=== PATIENT | male | born 1965 | race Caucasian/White ===

== ENCOUNTER 2023-05-02 21:46 | Emergency (ER) | payer MEDICAID ==
[~2023-05-02] VITALS: Ht 188 cm; Wt 99.8 kg
[2023-05-02 23:13] LABS: CALCIUM 8.8 mg/dL (8.5-10.1); CREATININE 0.8 mg/dL (0.6-1.3); POTASSIUM 3.9 mmol/L (3.5-5.1)
[2023-05-02 23:19] LABS: ALBUMIN 3.3 g/dL (3.4-5.0); BILIRUBIN,TOTAL 0.4 mg/dL (0.2-1.0); TOTAL PROTEIN, SERUM 7.1 g/dL (6.4-8.2)
[2023-05-02 23:20] LABS: BASOPHILS # (AUTO) 0.4 K/UL (0.0-0.2); C-REACTIVE PROTEIN 2.24 mg/dL (0.00-0.30); DIFFERENTIAL COMMENT 0; EOSINOPHILS # (AUTO) 0.3 K/uL (0.0-0.7); EOSINOPHILS % (AUTO) 3.5 % (0.0-7.0); HEMATOCRIT 41.2 % (36.7-47.1); HEMOGLOBIN 14.4 g/dL (12.5-16.3); LYMPHOCYTES % (AUTO) 10.6 % (20.5-51.5); MEAN CORPUSCULAR HEMOGLOBIN 32.4 uug (23.8-33.4); MEAN CORPUSCULAR HGB CONC 35 g/dL (32.5-36.3); MEAN CORPUSCULAR VOLUME 92.4 fL (73.0-96.2); MONOCYTES # (AUTO) 0.9 K/uL (0.1-1.30); MONOCYTES % (AUTO) 9.7 % (0.0-11.0); NEUTROPHILS # (AUTO) 6.8 K/uL (1.8-8.9); NEUTROPHILS % (AUTO) 72.2 % (38.5-71.5); PLATELET COUNT (AUTO) 173 K/uL (152-348); RED BLOOD CELL COUNT(AUTO) 4.46 MIL/uL (4.06-5.63); RED CELL DISTRIBUTION WIDTH 13.3 % (12.1-16.2); WHITE BLOOD COUNT (AUTO) 9.4 K/uL (3.6-10.2)
[2023-05-02 23:25] LABS: ERYTHROCYTE SEDIMENTATION RATE 25 MM/HR (0-15)
[2023-05-02] MEDS ORDERED: DOXY100C5 PO (23:36)
[2023-05-02] MEDS ORDERED: DOXYCYCLINE HYCLATE 100 MG TABLET ONE (23:48)
[2023-05-02] MEDS: DOXYCYCLINE HYCLATE 100 MG TABLET PO ONE (23:50)
[2023-05-03 00:16] VITALS: BP 147/85; TEMP 98.5; O2SAT 95
== END 2023-05-03 00:10 | disposition home or self-care (01) ==
LOC: ER 21:47
DX: L03.032 Cellulitis of left toe (principal); L02.612 Cutaneous abscess of left foot; F17.200 Nicotine dependence, unspecified, uncomplicated; Z79.899 Other long term (current) drug therapy
CPT/HCPCS: 36415; 73660; 83735; 85025; 85651; 86140; A4606; A4663

== ENCOUNTER 2023-06-26 03:14 | Inpatient (IN) | payer OTHER ==
[~2023-06-26] VITALS: Ht 188 cm; Wt 99.8 kg
[~2023-06-26 03:14] MED LIST: DOXY100C5 PO
[2023-06-26] MEDS ORDERED: ONDANSETRON 4 MG/2 ML VIAL ONE (03:53)
[2023-06-26] MEDS ORDERED: NITROGLYCERIN 0.4MG/HR (=16 CM2) PATCH TD ONE (03:53)
[2023-06-26] MEDS ORDERED: HYDROMORPHONE 1 MG/1 ML DISP.SYRIN ONE ×3 (03:54→05:04)
[2023-06-26] MEDS ORDERED: NITROGLYCERIN OINT 1 GM PACKET TP ONE (04:02)
[2023-06-26] MEDS: HYDROMORPHONE 1 MG/1 ML DISP.SYRIN IV ONE ×3 (04:06→05:27)
[2023-06-26] MEDS: IV NORMAL SALINE 1000 ML BAG IV ONE (04:06)
[2023-06-26] MEDS: ONDANSETRON 4 MG/2 ML VIAL IV ONE (04:07)
[2023-06-26] MEDS: NITROGLYCERIN OINT 1 GM PACKET TP ONE (04:07)
[2023-06-26 04:09] LABS: CALCIUM 8.7 mg/dL (8.5-10.1); CARBON DIOXIDE 31 mmol/L (21-32); CHLORIDE 101 mmol/L (98-107); CREATININE 0.8 mg/dL (0.6-1.3); GLUCOSE 109 mg/dL (74-106); POTASSIUM 4.7 mmol/L (3.5-5.1); SODIUM SERUM 137 mmol/L (136-145); UREA NITROGEN, BLOOD 16 mg/dL (7-18)
[2023-06-26 04:31] LABS: ALANINE AMINOTRANSFERASE 19 U/L (16-63); ALKALINE PHOSPHATASE 87 U/L (50-136); ASPARTATE AMINOTRANSFERASE 18 U/L (15-37); BILIRUBIN,DIRECT < 0.1 mg/dL (0.0-0.2); BILIRUBIN,TOTAL 0.5 mg/dL (0.2-1.0); NT-PRO BNP 15 pg/mL (0-125)
[2023-06-26] MEDS ORDERED: levoFLOXacin 750MG/D5W 150 ML IV ONE (04:50)
[2023-06-26] MEDS: levoFLOXacin 750 MG/D5W 150 ML PIGGYBACK IV ONE (04:57)
[2023-06-26 05:06] LABS: BASOPHILS # (AUTO) 0.1 K/UL (0.0-0.2); BASOPHILS % (AUTO) 0.6 % (0.0-2.0); EOSINOPHILS # (AUTO) 0.3 K/uL (0.0-0.7); EOSINOPHILS % (AUTO) 2.7 % (0.0-7.0); HEMATOCRIT 40.9 % (36.7-47.1); HEMOGLOBIN 14.1 g/dL (12.5-16.3); LYMPHOCYTES # (AUTO) 1.7 K/uL (0.8-4.8); MEAN CORPUSCULAR HEMOGLOBIN 31.1 uug (23.8-33.4); MEAN CORPUSCULAR HGB CONC 35 g/dL (32.5-36.3); MEAN CORPUSCULAR VOLUME 90.2 fL (73.0-96.2); MONOCYTES # (AUTO) 1.1 K/uL (0.1-1.30); MONOCYTES % (AUTO) 10.4 % (0.0-11.0); NEUTROPHILS % (AUTO) 69.3 % (38.5-71.5); PLATELET COUNT (AUTO) 236 K/uL (152-348); RED BLOOD CELL COUNT(AUTO) 4.54 MIL/uL (4.06-5.63); RED CELL DISTRIBUTION WIDTH 13.5 % (12.1-16.2); WHITE BLOOD COUNT (AUTO) 10.2 K/uL (3.6-10.2)
[2023-06-26 05:34] LABS: DIFFERENTIAL COMMENT 1
[2023-06-26] MEDS ORDERED: ENOXAPARIN SODIUM 100 MG/ML DISP.SYRIN SQ ONE (05:44)
[2023-06-26] MEDS: ENOXAPARIN SODIUM 100 MG/ML DISP.SYRIN SQ ONE (05:49)
[2023-06-26] MEDS ORDERED: ACETAMINOPHEN 325 MG TABLET PO PRN (06:45)
[2023-06-26] MEDS ORDERED: ONDANSETRON 4 MG/2 ML VIAL IV PRN (06:45)
[2023-06-26] MEDS ORDERED: REMEDY ESSENTIAL ZINC PASTE 113 GM TP PRN (06:45)
[2023-06-26] MEDS ORDERED: SWABABLE VALVE TRANSFER SET EA MC ONE (09:05)
[2023-06-26] MEDS ORDERED: IV NORMAL SALINE 250 ML IV ONE (09:05)
[2023-06-26] MEDS ORDERED: IOHEXOL 350 100 ML INFUS..BTL ONE (09:05)
[2023-06-26 10:05] VITALS: BP 115/72; TEMP 97.8; O2SAT 95
[2023-06-26] MEDS: PANTOPRAZOLE SODIUM 40 MG TABLET.DR PO SCH (10:19)
[2023-06-26 12:07] VITALS: BP 118/67; TEMP 97.7; O2SAT 96
[2023-06-26] MEDS: CEFEPIME HCL 1 G in IV DEXTROSE 5% 50 ML IV SCH (13:00)
[2023-06-26 13:08] LABS: *BILIRUBIN,URIN NEGATIVE (NEGATIVE); *BLOOD, URINE NEGATIVE (NEGATIVE); *CLARITY,URINE CLEAR (CLEAR); *COLOR,URINE YELLOW (YELLOW); *KETONES,URINE NEGATIVE (NEGATIVE); *PROTEIN,URINE NEGATIVE (NEGATIVE); LEUKOCYTE ESTERASE ,URINE NEGATIVE (NEGATIVE); NITRITE, URINE NEGATIVE (NEGATIVE); UGLUCOSE NEGATIVE (NEGATIVE)
[2023-06-26 13:22] LABS: *AMPHETAMINE, URINE POSITIVE (NEGATIVE); *BARBITURATE, URINE NEGATIVE (NEGATIVE); *BENZODIAZEPINE, URINE NEGATIVE (NEGATIVE); *CANNABINOID, URINE NEGATIVE (NEGATIVE); *COCCAINE, URINE NEGATIVE (NEGATIVE); *OPIATE, URINE POSITIVE (NEGATIVE); *PHENCYCLIDINE SCREEN,URINE POSITIVE (NEGATIVE)
[2023-06-26 13:28] LABS: FENTANYL, URINE POSITIVE (NEGATIVE)
[2023-06-26 14:27] LABS: BACTERIA,URINE NONE SEEN /HPF (NONE SEEN); RBC,URINE NONE SEEN /HPF (0-3); SQUAMOUS EPITHELIAL CELL,UR FEW /HPF (NONE SEEN); WBC,URINE 0-3 /HPF (0-3)
[2023-06-26] MEDS: MORPHINE SULFATE 4 MG/1 ML DISP.SYRIN IV PRN (14:46)
[2023-06-26 15:54] VITALS: BP 126/76; TEMP 97.6; O2SAT 97
[2023-06-26] MEDS: VANCOMYCIN HCL 1,500 MG in IV DEXTROSE 5% 500 ML IV ONE (16:02)
[2023-06-26 19:45] VITALS: BP 129/70; TEMP 98.1; O2SAT 95
[2023-06-26] MEDS: ENOXAPARIN SODIUM 100 MG/ML DISP.SYRIN SQ SCH (20:45)
[2023-06-27] VITALS (7 sets, daily range): BP systolic 120–168; BP diastolic 51–89; TEMP 97.8–98.5; O2SAT 91–97
[2023-06-27] MEDS: HYDROCODONE/APAP 5-325MG TABLET PO PRN (03:49)
[2023-06-27] MEDS ORDERED: VANCOMYCIN 1000 MG VIAL ONE (04:18)
[2023-06-27] MEDS ORDERED: VANCOMYCIN HCL 500 MG VIAL ONE (04:18)
[2023-06-27] MEDS: VANCOMYCIN HCL 1,500 MG in IV DEXTROSE 5% 500 ML IV SCH (05:28)
[2023-06-27 06:40] LABS: BASOPHILS % (AUTO) 0.4 % (0.0-2.0); EOSINOPHILS # (AUTO) 0.2 K/uL (0.0-0.7); EOSINOPHILS % (AUTO) 1.9 % (0.0-7.0); HEMATOCRIT 39.3 % (36.7-47.1); HEMOGLOBIN 13.8 g/dL (12.5-16.3); LYMPHOCYTES # (AUTO) 1.2 K/uL (0.8-4.8); LYMPHOCYTES % (AUTO) 11.9 % (20.5-51.5); MEAN CORPUSCULAR HEMOGLOBIN 31.3 uug (23.8-33.4); MEAN CORPUSCULAR HGB CONC 35 g/dL (32.5-36.3); MEAN CORPUSCULAR VOLUME 88.9 fL (73.0-96.2); MONOCYTES # (AUTO) 0.9 K/uL (0.1-1.30); MONOCYTES % (AUTO) 9.6 % (0.0-11.0); NEUTROPHILS # (AUTO) 7.6 K/uL (1.8-8.9); NEUTROPHILS % (AUTO) 76.2 % (38.5-71.5); PLATELET COUNT (AUTO) 227 K/uL (152-348); RED BLOOD CELL COUNT(AUTO) 4.42 MIL/uL (4.06-5.63); RED CELL DISTRIBUTION WIDTH 13.2 % (12.1-16.2); WHITE BLOOD COUNT (AUTO) 9.9 K/uL (3.6-10.2)
[2023-06-27 06:48] LABS: DIFFERENTIAL COMMENT 1
[2023-06-27 06:54] LABS: CALCIUM 8.4 mg/dL (8.5-10.1); CREATININE 0.7 mg/dL (0.6-1.3); MAGNESIUM 1.9 mg/dL (1.8-2.4); PHOSPHOROUS 2.6 mg/dL (2.5-4.9); POTASSIUM 4.2 mmol/L (3.5-5.1)
[2023-06-27 07:01] LABS: THYROID STIMULATING HORMONE 0.192 mIU/mL (0.358-3.740)
[2023-06-28] VITALS (7 sets, daily range): BP systolic 109–151; BP diastolic 60–86; TEMP 97.2–99; O2SAT 92–97
[2023-06-28] MEDS: MAGNESIUM HYDROXIDE 30 ML LIQUID UDC PO PRN (12:02)
[2023-06-28] MEDS ORDERED: KETOROLAC TROMETHAMINE 30 MG INJ IM PRN (13:30)
[2023-06-28] MEDS: HYDROMORPHONE HCL 2 MG TABLET PO PRN (17:05)
[2023-06-29 05:50] VITALS: BP 143/73; TEMP 98.8; O2SAT 94
[2023-06-29] MEDS: ENOXAPARIN SODIUM 40 MG/0.4 ML DISP.SYRIN SQ SCH (08:20)
[2023-06-29] MEDS: VANCOMYCIN HCL 1,500 MG in IV DEXTROSE 5% 500 ML IV SCH (08:20)
[2023-06-29] MEDS: METHIMAZOLE 5 MG TABLET PO SCH (09:08)
[2023-06-29 11:41] VITALS: BP 146/66; TEMP 97.9; O2SAT 94
[2023-06-29] MEDS ORDERED: METH5TAB34 PO (13:57)
[2023-06-29] MEDS ORDERED: DOXY-326 PO (13:57)
== END 2023-06-29 15:14 | disposition home or self-care (01) | DRG 139 ==
LOC: ER 03:15 → TELE3 08:38 → MEDSURG3 06-28 10:00
PROVIDERS: ADMIT Nurse Practitioner Acute Care; ATTEND Internal Medicine
DX: J15.9 Unspecified bacterial pneumonia (principal); J96.01 Acute respiratory failure with hypoxia; J91.8 Pleural effusion in other conditions classified elsewhere; F17.210 Nicotine dependence, cigarettes, uncomplicated; Z85.818 Personal history of malignant neoplasm of other sites of lip, oral cavity, and pharynx; Z86.19 Personal history of other infectious and parasitic diseases; F11.20 Opioid dependence, uncomplicated; R79.1 Abnormal coagulation profile; Z87.19 Personal history of other diseases of the digestive system; F15.10 Other stimulant abuse, uncomplicated; I10 Essential (primary) hypertension; F16.10 Hallucinogen abuse, uncomplicated; R07.9 Chest pain, unspecified; E53.8 Deficiency of other specified B group vitamins
CPT/HCPCS: 36415; 71045; 71275; 83735; 84100; 84443; 84481; 84484; 85025; 87040; 93005; 93307; A4663; G0378; J0692; J1170; J1650; J1956; J2270; J2405; J3370; J3371; J7040; J7060; Q9967